=== PATIENT | female | born 1990 | race Caucasian/White ===

== ENCOUNTER 2024-05-29 20:46 | Emergency (ER) | payer OTHER, SELFPAY ==
[2024-05-29 20:46] VITALS: BP 129/89; PULSE 104; RESP 18; TEMP 36.6; O2SAT 100; BMI 20.9
--- NOTE | 2024-05-29 21:45 | ED_ITS ---
HPI - General Adult General Chief complaint: Shortness of Breath/Dyspnea Stated complaint: throat closing Time Seen by Provider: 05/29/24 20:48 Source: patient Mode of arrival: Ambulatory History of Present Illness HPI narrative: 33yoF with PMH anxiety, PTSD presents by private vehicle from home for constipation with abdominal pain, chest pain, possible allergic reaction. Patient was taken to [facility] 8 days ago for irregular heart rate and abnormal EKG. Patient states that she was told that everything was normal and she should follow up with a agent based modeler and discharged home. Patient states that she was tested positive for COVID-19 for the last 4 weeks in his on her 2nd round of Paxlovid. Has been taking [id number] laxatives for constipation without relief. Related Data Previous Rx's Medication Instructions Recorded sumatriptan succinate 100 mg See Rx Instructions PO .COMPLEX 10/30/22 tablet (Imitrex) #10 tabs ondansetron 4 mg disintegrating 4 - 8 mg (1 - 2 x 4 mg) PO Q8H PRN 02/08/23 tablet nausea and vomiting #30 tabs nirmatrelvir 300 mg (150 mg See Rx Instructions PO .COMPLEX 05/21/24 x2)-ritonavir 100 mg tablet,dose #30 ea pack (Paxlovid) prednisone 20 mg tablet 20 mg PO DAILY #7 tabs 05/21/24 Allergies Allergy/AdvReac Type Severity Reaction Status Date / Time acetaminophen [From Vicodin] AdvReac Mild Abdominal Verified 05/29/24 20:54 Pain hydrocodone [From Vicodin] AdvReac Mild Abdominal Verified 05/29/24 20:54 Pain Patient History Medical History Anxiety and depression (~2017) ADHD (~1999) Scoliosis Irritable bowel syndrome Surgical History Anesthesia History of tonsillectomy (~2020) History of appendectomy (~2011) History of cholecystectomy (~2007) Social History Smoking Status: Former smoker Smoking Status: Former smoker alcohol intake frequency: holidays/special occasions only Substance Use Type: does not use Exam Initial Vital Signs Initial Vital Signs: Vital Signs Temperature 97.9 F 05/29/24 20:46 Pulse Rate 104 H 05/29/24 20:46 Respiratory Rate 18 05/29/24 20:46 Blood Pressure 129/89 05/29/24 20:46 Pulse Oximetry 100 05/29/24 20:46 Oxygen Delivery Method Room Air 05/29/24 20:46 Const: Awake, alert, no acute distress, nontoxic appearing Cardiac: Tachycardia, regular rhythm RESP: unlabored, clear bilaterally, no wheezing GI: Soft, generalized tenderness to deep palpation without rebound or guarding MSK: Atraumatic, full range of motion, pulses equal Skin: Warm, Dry, intact, no rashes Neuro: AO x3, CN II-XII grossly intact, moves all extremities Course Orders Ordered: Discontinued Medications Polyethylene Glycol/Electrolytes ([id number]/Sod Sulf,Bicarb,Cl/Kcl 4,000 Ml Solution) 4,000 ml PO NOW ONE Stop: 05/29/24 22:54 Last Admin: 05/29/24 23:08 Dose: 4,000 ml Documented By: TIAN Vital Signs Vital signs: Vital Signs - 8 hr 05/29/24 20:46 Temperature 97.9 F Pulse Rate 104 H Respiratory Rate 18 Blood Pressure 129/89 Pulse Oximetry 100 Oxygen Delivery Method Room Air Medical Decision Making Lab Data 05/29/24 21:15 05/29/24 21:15 Labs: Lab Results 05/29/24 Range/Units 21:15 WBC 9.7 (4.5-11.0) X10^3/uL RBC 3.67 L (4.0-5.2) X10^6/uL Hgb 12.8 (12.0-16.0) g/dL Hct 37.3 (36-46) % MCV 101.8 H (80-100) fL MCH 34.8 H (26-34) PG MCHC 34.2 (30-36) % RDW 15.0 H (11.6-14.8) % Plt Count 405 H (150-400) X10^3/uL Neut % (Auto) 80.1 H (50-75) % Lymph % (Auto) 13.8 L (25-40) % Sawyer % (Auto) 5.1 (3-14) % Eos % (Auto) 0.0 L (2-4) % Baso % (Auto) 1.0 (0-2) % Neut # (Auto) 7800 H (0866-4202) /uL Lymph # (Auto) 1300 (8254-5762) /uL Sawyer # (Auto) 500 (0-900) /uL Eos # (Auto) 0 (0-450) /uL Baso # (Auto) 100 (0-100) /uL Sodium 140 (137-145) mmol/L Potassium 4.1 (3.4-5.1) mmol/L Chloride 105 (98-107) mmol/L Carbon Dioxide 25 (22-32) mmol/L BUN 14 (7-17) mg/dL Creatinine 0.52 (0.52-1.04) mg/dL Estimated GFR > 60 (>60) mL/min BUN/Creatinine Ratio 26.9 H (6-22) Glucose 124 H (70-100) mg/dL Calcium 9.5 (8.4-10.2) mg/dL Total Bilirubin 0.5 (0.2-1.3) mg/dL AST 90 H (14-36) IU/L ALT 114 H (<35) IU/L Alkaline Phosphatase 109 (38-126) U/L Total Creatine Kinase 71 (30-135) U/L Troponin I < 0.012 (0.01-0.034) ng/mL Total Protein 7.5 (6.3-8.2) g/dL Albumin 4.5 (3.5-5.0) g/dL Globulin 3.0 (1.7-4.1) g/dL Albumin/Globulin Ratio 1.5 (1.0-2.8) Imaging Data Chest x-ray: Radiologist's Impression: PROCEDURE: XR CHEST 1V INDICATIONS: CHEST PAIN, DYSPNEA TECHNIQUE: One view of the chest was acquired. COMPARISON: [facility] ([facility], CR, XR CHEST 2V, 05/21/2024, 15:25. FINDINGS: Surgical changes and devices: None. Lungs and pleura: Lungs are clear. No pleural effusions or pneumothorax. Mediastinum: Mediastinal contours appear normal. Heart size is normal. Bones and chest wall: No suspicious bony lesions. Overlying soft tissues appear unremarkable. IMPRESSION: No acute pulmonary process. Dictated by: Mary Kemp M.D. on 05/29/2024 at 22:58 Approved by: Mary Kemp M.D. on 05/29/2024 at 22:58 Abdominal x-ray: Radiologist's Impression: PROCEDURE: XR KUB INDICATIONS: NO BM X 1WK TECHNIQUE: One view of the abdomen acquired. COMPARISON: None. FINDINGS: Surgical changes and devices: None. Bowel: Bowel gas pattern is normal. Moderate stool. Soft tissues: No suspicious abdominal calcifications. Visualized solid organ contours appear normal in size. Bones: No suspicious bony lesions. IMPRESSION: Moderate stool without obstruction. Dictated by: Mary Kemp M.D. on 05/29/2024 at 22:58 Approved by: Mary Kemp M.D. on 05/29/2024 at 22:58 MDM Narrative Medical decision making narrative: Well-appearing patient with multiple complaints. Patient states that today her biggest complaint is her abdomen and lack of bowel movement for the last week, concerned that she may have a blockage. States that her chest pain has been unchanged since her visit to [facility]. She states that occasionally she feels like she was choking or drowning on secretions. Patient is speaking in complete sentences without difficulty, saturating well on room air, no drooling or pooling of secretions. Patient was able to access her records from her hospital stay 8 days ago. She underwent normal laboratory work and CT imaging including a negative D-dimer. Abdomen is soft, no peritoneal signs. Laboratory work shows WBC count 9.7, hemoglobin 12.8, platelets 405, sodium 140, potassium 4.1, creatinine 0.52, troponin undetectable. Labs not significantly changed from what patient showed me from her [place] stay. KUB shows moderate constipation. Chest x-ray negative for acute findings. Patient relieved to know that her labs look normal at this time, and that there was no obstruction on KUB. Patient was given a gal of GoLYTELY and instructed on how to take this at home to produce bowel movement. Discharge Plan Departure Patient Disposition: Home Clinical Impression: Abdominal pain, Chest pain, Constipation Instructions: DI for Constipation Activity Restrictions/Additional Instructions: Your laboratory work today is essentially unchanged from your records at [facility]. Continue your previously prescribed medications. Drank 8 oz of the GoLYTELY solution 2-3 times daily until bowel movement happens. After that take a maintenance stool softener with goal of 1 soft bowel movement daily. Follow up with your primary care doctor as needed. Prescriptions: No Action sumatriptan succinate [Imitrex] 100 mg tablet See Rx Instructions PO .COMPLEX Qty: 10 0RF Rx Instructions: take 1 tab at onset of headache; if no relief, may repeat 1 tab after at least 2 hrs; max = 2 tabs/24 hrs PO ondansetron 4 mg tablet,disintegrating 4 - 8 mg PO Q8H PRN (Reason: nausea and vomiting) Qty: 30 2RF Paxlovid 300 mg (150 mg x 2)-100 mg tablets,dose pack See Rx Instructions PO .COMPLEX Qty: 30 0RF Rx Instructions: take TWO 150 mg tablets of nirmatrelvir with ONE 100 mg tablet of ritonavir twice daily for 5 days PO prednisone 20 mg tablet 20 mg PO DAILY Qty: 7 0RF Referrals: Windy Lopez PA-C [Primary Care Provider] - Stand Alone Forms: Patient Portal/API
[2024-05-29 22:15] LABS: Creatine Kinase 71 U/L (30-135)
[2024-05-29 22:16] LABS: Alanine Aminotransferase 114 IU/L (<35); Albumin 4.5 g/dL (3.5-5.0); Albumin Globulin Ratio 1.5 (1.0-2.8); Alkaline Phosphatase 109 U/L (38-126); Aspartate Aminotransferase 90 IU/L (14-36); BUN Creatinine Ratio 26.9 (6-22); Bilirubin Total 0.5 mg/dL (0.2-1.3); Blood Urea Nitrogen 14 mg/dL (7-17); Calcium 9.5 mg/dL (8.4-10.2); Carbon Dioxide 25 mmol/L (22-32); Chloride 105 mmol/L (98-107); Estimated Glomerular Filt Rate > 60 mL/min (>60); Glucose 124 mg/dL (70-100); HEMOLYSIS < 15 (0-50); Potassium 4.1 mmol/L (3.4-5.1); Sodium 140 mmol/L (137-145); Total Protein 7.5 g/dL (6.3-8.2)
[2024-05-29 22:17] LABS: Add Manual Diff / Slide Review NO; Basophils Absolute Auto 100 /uL (0-100); Eosinophils Absolute Auto 0 /uL (0-450); Hematocrit 37.3 % (36-46); Hemoglobin 12.8 g/dL (12.0-16.0); Lymphocytes Absolute Auto 1300 /uL (1100-4500); Lymphocytes Percent Auto 13.8 % (25-40); Mean Corpuscular HGB Conc 34.2 % (30-36); Mean Corpuscular Hemoglobin 34.8 PG (26-34); Mean Corpuscular Volume 101.8 fL (80-100); Monocytes Absolute Auto 500 /uL (0-900); Monocytes Percent Auto 5.1 % (3-14); Neutrophils Absolute Auto 7800 /uL (1500-7000); Neutrophils Percent Auto 80.1 % (50-75); Platelet Count 405 X10^3/uL (150-400); Red Blood Cell Count 3.67 X10^6/uL (4.0-5.2); White Blood Cell Count 9.7 X10^3/uL (4.5-11.0)
[2024-05-29 22:28] LABS: Troponin I < 0.012 ng/mL (0.01-0.034)
[2024-05-29] MEDS: PEG3350/SOD SULF,BICARB,CL/KCL 4,000 ML SOLUTION 4000 ML PO (23:08)
[2024-05-29 23:27] VITALS: BP 122/79; PULSE 98; RESP 16; TEMP 36.6; O2SAT 100
== END 2024-05-29 23:30 | disposition home or self-care (01) ==
PROVIDERS: Emergency Provider Emergency Medicine; PCP Physician Assistant
DX: R10.9 Unspecified abdominal pain (principal); K59.00 Constipation, unspecified; R07.9 Chest pain, unspecified; R79.89 Other specified abnormal findings of blood chemistry
CPT/HCPCS: 36415; 71045; 74018; 80053; 82550; 84484; 85025; 99283; 99284

== ENCOUNTER → 2024-06-05 09:06 | Outpatient (CLI) | payer OTHER, SELFPAY ==
[2024-06-05 20:29] LABS: Alanine Aminotransferase 120 IU/L (<35); Albumin 4.2 g/dL (3.5-5.0); Albumin Globulin Ratio 1.8 (1.0-2.8); Alkaline Phosphatase 82 U/L (38-126); Aspartate Aminotransferase 135 IU/L (14-36); Bilirubin Total 0.5 mg/dL (0.2-1.3); Globulin 2.3 g/dL (1.7-4.1); HEMOLYSIS 15 (0-50); Total Protein 6.5 g/dL (6.3-8.2)
[2024-06-05 20:38] LABS: Monotest Negative (Negative)
[2024-06-05 20:39] LABS: Add Manual Diff / Slide Review NO; Basophils Absolute Auto 100 /uL (0-100); Basophils Percent Auto 1.4 % (0-2); Eosinophils Absolute Auto 200 /uL (0-450); Eosinophils Percent Auto 2.2 % (2-4); Hematocrit 38.6 % (36-46); Hemoglobin 13.2 g/dL (12.0-16.0); Lymphocytes Absolute Auto 2100 /uL (1100-4500); Lymphocytes Percent Auto 27.1 % (25-40); Mean Corpuscular HGB Conc 34.2 % (30-36); Mean Corpuscular Hemoglobin 34.9 PG (26-34); Mean Corpuscular Volume 102.3 fL (80-100); Monocytes Absolute Auto 900 /uL (0-900); Neutrophils Absolute Auto 4500 /uL (1500-7000); Neutrophils Percent Auto 58.3 % (50-75); Platelet Count 344 X10^3/uL (150-400); Red Blood Cell Count 3.77 X10^6/uL (4.0-5.2); Red Cell Distribution Width 14.1 % (11.6-14.8); White Blood Cell Count 7.7 X10^3/uL (4.5-11.0)
[2024-06-05 21:01] LABS: Cortisol AM (Before 10AM) 18.6 ug/dL (4.46-22.7)
[2024-06-05 21:05] LABS: TSH w/ Reflex to FT4 1.55 uIU/mL (0.47-4.68)
== END ==
PROVIDERS: PCP Physician Assistant; Referring Provider Family Medicine; Visit Provider Family Medicine
DX: R00.0 Tachycardia, unspecified (principal); R10.9 Unspecified abdominal pain; R07.9 Chest pain, unspecified; R79.89 Other specified abnormal findings of blood chemistry; R06.02 Shortness of breath; R53.83 Other fatigue
CPT/HCPCS: 80076; 82533; 84443; 85025; 86318

== ENCOUNTER → 2025-04-14 12:09 | Outpatient (CLI) | payer OTHER, SELFPAY ==
[2025-04-14 12:43] LABS: Add Manual Diff / Slide Review NO; Basophils Absolute Auto 100 /uL (0-100); Eosinophils Absolute Auto 100 /uL (0-450); Eosinophils Percent Auto 1.3 % (2-4); Hematocrit 40.4 % (36-46); Hemoglobin 13.5 g/dL (12.0-16.0); Lymphocytes Absolute Auto 1900 /uL (1100-4500); Lymphocytes Percent Auto 24.1 % (25-40); Mean Corpuscular HGB Conc 33.4 % (30-36); Mean Corpuscular Hemoglobin 35.7 PG (26-34); Mean Corpuscular Volume 106.7 fL (80-100); Monocytes Absolute Auto 800 /uL (0-900); Neutrophils Absolute Auto 5100 /uL (1500-7000); Neutrophils Percent Auto 63.6 % (50-75); Platelet Count 356 X10^3/uL (150-400); Red Blood Cell Count 3.79 X10^6/uL (4.0-5.2); Red Cell Distribution Width 12.6 % (11.6-14.8)
[2025-04-14 13:16] LABS: HCG Quantitative /Beta subunit < 2.39 mIU/mL
[2025-04-14 13:33] LABS: TSH w/ Reflex to FT4 0.95 uIU/mL (0.47-4.68)
[2025-04-14 13:34] LABS: Ferritin 51 ng/mL (6-137)
== END ==
LOC: LAB 12:11
PROVIDERS: PCP Family Medicine; Referring Provider Nurse Practitioner Adult Health; Visit Provider Nurse Practitioner Adult Health
DX: O03.9 Complete or unspecified spontaneous abortion without complication (principal)
CPT/HCPCS: 36415; 82728; 84443; 84702; 85025; 86900; 86901